=== PATIENT | female | born 1985 | race Caucasian/White ===

== ENCOUNTER 2025-06-11 12:54 | Emergency (ER) | payer OTHER ==
[~2025-06-11] VITALS: Ht 167.6 cm; Wt 54.0 kg
[~2025-06-11 12:54] MED LIST: CALCIUM 600 WI1 EAC2 PO; IBUPROFEN600 MG PO; PRENATABS FA T1 EACH PO; ULTRAM50 MG PO
[2025-06-11 13:40] LABS: BLOOD/HGB, URINE SMALL (Negative); KETONE, URINE NEGATIVE (Negative); LEUK ESTERASE, URINE LARGE (negative); NITRITE, URINE POSITIVE (negative)
[2025-06-11 13:45] LABS: CASTS, URINE NONE SEEN \\lpf; CRYSTALS, URINE NONE SEEN (0-1+); EPITHELIAL CELLS, URINE SQUAMOUS 1+ /lpf (0-1+)
[2025-06-11 13:46] LABS: BACTERIA, URINE 2+ /hpf (negative); REFLEX CULTURE, URINE Yes (No)
[2025-06-11] MEDS ORDERED: ACETAMINOPHEN 500 MG TAB PO ONE (14:00)
[2025-06-11] MEDS ORDERED: ONDANSETRON ODT4 MG PO (15:22)
[2025-06-11] MEDS ORDERED: LEVOFLOXACIN750 MG PO (15:22)
[2025-06-11] MEDS ORDERED: ONDANSETRON 4 MG TAB ODT SL ONE (15:30)
[2025-06-11 16:08] VITALS: BP 95/62
== END 2025-06-11 16:08 | disposition home or self-care (01) ==
LOC: ED 12:54
PROVIDERS: Emergency Medicine
DX: N13.6 Pyonephrosis (principal); F17.200 Nicotine dependence, unspecified, uncomplicated; Z87.440 Personal history of urinary (tract) infections; Z88.1 Allergy status to other antibiotic agents
CPT/HCPCS: 74176; 81001; 84703; 87088; 87186; 99284-25; A9270